=== PATIENT | male | born 1985 ===

== ENCOUNTER 2021-05-14 10:49 | Emergency (ER) | payer SELFPAY ==
[~2021-05-14] VITALS: Ht 177.8 cm; Wt 74.5 kg
[2021-05-14 10:50] VITALS: BP 134/86
== END 2021-05-14 10:58 | disposition left against medical advice (07) ==
LOC: M ED 10:49
DX: Z53.21 Procedure and treatment not carried out due to patient leaving prior to being seen by health care provider (principal)